=== PATIENT | female | born 1935 | race Caucasian/White ===

== ENCOUNTER 2017-08-07 16:40 | Emergency (ER) | payer MEDICARE ==
[~2017-08-07] VITALS: Ht 154.9 cm; Wt 90.7 kg
[2017-08-07] MEDS ORDERED: NORVASC2.5 MG PO (16:58)
[2017-08-07] MEDS ORDERED: BIOTIN5000 MCG PO (16:59)
[2017-08-07] MEDS ORDERED: ASPIR 8181 MG PO (16:59)
[2017-08-07] MEDS ORDERED: CALCIUM 500 +1 EAC5 PO (17:00)
[2017-08-07] MEDS ORDERED: CELEBREX 200 M200 M1 PO (17:00)
[2017-08-07] MEDS ORDERED: COLACE100 MG PO (17:00)
[2017-08-07] MEDS ORDERED: COREG25 MG PO (17:00)
[2017-08-07] MEDS ORDERED: HYDRALAZINE 2525 MG PO (17:01)
[2017-08-07] MEDS ORDERED: NEURONTIN 300300 M1 PO (17:01)
[2017-08-07] MEDS ORDERED: HYDROCODONE-AP1 EAC6 PO (17:02)
[2017-08-07] MEDS ORDERED: CLARITIN10 MG PO (17:02)
[2017-08-07] MEDS ORDERED: MULTIPLE VITAM1 EAC2 PO (17:02)
[2017-08-07] MEDS ORDERED: LISINOPRIL20 MG PO (17:02)
[2017-08-07] MEDS ORDERED: OMEPRAZOLE 20 M20 M1 PO (17:02)
[2017-08-07] MEDS ORDERED: ZOCOR20 MG PO (17:03)
[2017-08-07 19:54] VITALS: BP 189/79
== END 2017-08-07 19:57 | disposition home or self-care (01) ==
LOC: M.ERS 16:40
DX: S01.81XA Laceration without foreign body of other part of head, initial encounter (principal); S46.811A Strain of other muscles, fascia and tendons at shoulder and upper arm level, right arm, initial encounter; S60.212A Contusion of left wrist, initial encounter; J45.909 Unspecified asthma, uncomplicated; I10 Essential (primary) hypertension; W18.39XA Other fall on same level, initial encounter; Y93.89 Activity, other specified; Y92.89 Other specified places as the place of occurrence of the external cause; Y99.8 Other external cause status